=== PATIENT | female | born 1960 | race Caucasian/White ===

== ENCOUNTER 2016-09-16 16:44 | Inpatient (IN) | payer OTHER ==
[2016-09-16 18:16] LABS: CALCIUM 8.6 mg/dl (8.5-10.1); POTASSIUM 3.2 mMol/L (3.5-5.1)
[2016-09-16 18:23] LABS: BASOPHILS % (AUTO) 1 % (0-3); EOSINOPHILS % (AUTO) 1 % (0-9); HEMATOCRIT 41 % (35-47); MEAN CORPUSCULAR HGB CONC 33.8 gm/dl (32.0-36.0); MEAN CORPUSCULAR VOLUME 89 fL (81-99); MONOCYTES % (AUTO) 7.3 % (0-12)
[2016-09-16] MEDS ORDERED: PIPERACILLIN/TAZOBACT 3.375 GM PDS IV ONE (18:27)
[2016-09-16] MEDS ORDERED: SODIUM CHLORIDE 0.9% 100 ML 100 ML IV ONE (18:27)
[2016-09-16] MEDS: SODIUM CHLORIDE 0.9% FLUSH 10 ML SOL IV SCH ×2 (18:39→19:51)
[2016-09-16] MEDS: PIPERACILLIN/TAZOBACT 3.375 GM 3.375 GM in SODIUM CHLORIDE 0.9% 100 ML 100 ML IV SCH (18:40)
[2016-09-16] MEDS ORDERED: VANCOMYCIN HCL 500 MG PDS 1,000 MG in SODIUM CHLORIDE 0.9% 250 ML 250 ML IV ONE (19:00)
[2016-09-16] MEDS: NICOTINE 7 MG PATCH TD SCH (19:50)
[2016-09-16] MEDS: KETOROLAC TROMETHAMINE 30 MG/ML SOL IV PRN (19:50)
[2016-09-16] MEDS ORDERED: VANCOMYCIN HYDROCHLORIDE 500 MG PDS IV ONE (21:00)
[2016-09-16] MEDS ORDERED: SODIUM CHLORIDE 0.9% 250 ML 250 ML IV ONE (21:00)
[2016-09-16] MEDS: BUSPIRONE HCL 5 MG TAB PO SCH (21:18)
[2016-09-16] MEDS: POTASSIUM CHLORIDE 10 MEQ TER PO SCH (21:19)
[2016-09-16] MEDS: PRAZOSIN HYDROCHLORIDE 2 MG CAP PO SCH (21:20)
[2016-09-16] MEDS: ALBUTEROL NEB SOL 2.5MG/3ML 1 VIAL SOL INH PRN (21:25)
[2016-09-16] MEDS: CLONAZEPAM 0.5 MG TAB PO PRN (21:25)
[2016-09-16] MEDS: [UNRECOGNIZED DRUG - OTHER] PO SCH (21:26)
[2016-09-16] MEDS: FORMOTEROL FUMARATE PO SCH (21:26)
[2016-09-17] MEDS ORDERED: PIPERACILLIN/TAZOBACT 3.375 GM PDS IV ONE ×5 (00:19→21:59)
[2016-09-17] MEDS ORDERED: SODIUM CHLORIDE 0.9% 100 ML 100 ML IV ONE ×5 (00:19→21:59)
[2016-09-17] MEDS: POTASSIUM CHLORIDE 10 MEQ TER PO SCH ×2 (00:35→09:24)
[2016-09-17] MEDS: PIPERACILLIN/TAZOBACT 3.375 GM 3.375 GM in SODIUM CHLORIDE 0.9% 100 ML 100 ML IV SCH ×5 (00:36→23:37)
[2016-09-17] MEDS: SODIUM CHLORIDE 0.9% FLUSH 10 ML SOL IV SCH ×6 (00:36→22:33)
[2016-09-17] MEDS: APAP/HYDROCODONE 325/5 TAB PO PRN ×4 (00:42→22:35)
[2016-09-17] MEDS: LEVOTHYROXINE SODIUM 50 MCG TAB PO SCH (06:16)
[2016-09-17] MEDS: KETOROLAC TROMETHAMINE 30 MG/ML SOL IV PRN ×2 (06:16→20:24)
[2016-09-17] MEDS: SERTRALINE HYDROCHLORIDE 50 MG TAB PO SCH (09:23)
[2016-09-17] MEDS: PANTOPRAZOLE SODIUM 40 MG ECT PO SCH (09:23)
[2016-09-17] MEDS: AMLODIPINE 5 MG TAB PO SCH (09:23)
[2016-09-17] MEDS: HYDROCHLOROTHIAZIDE/TRIAMTER 25/37.5 CAPSULE PO SCH (09:23)
[2016-09-17] MEDS: BUSPIRONE HCL 5 MG TAB PO SCH ×2 (09:23→20:23)
[2016-09-17] MEDS: ESTRADIOL 1 MG PO SCH (09:24)
[2016-09-17] MEDS: NICOTINE 7 MG PATCH TD SCH ×2 (10:05→20:54)
[2016-09-17] MEDS ORDERED: VANCOMYCIN HYDROCHLORIDE 500 MG PDS IV ONE ×2 (10:56→21:59)
[2016-09-17] MEDS ORDERED: SODIUM CHLORIDE 0.9% 250 ML 250 ML IV ONE (10:56)
[2016-09-17] MEDS: SODIUM CHLORIDE 0.9% IV SCH ×2 (11:09→22:33)
[2016-09-17] MEDS: VANCOMYCIN HCL IV SCH ×2 (11:09→22:33)
[2016-09-17] MEDS: PDS IV SCH ×2 (11:09→22:33)
[2016-09-17] MEDS: ALBUTEROL NEB SOL 2.5MG/3ML 1 VIAL SOL INH PRN (11:23)
[2016-09-17] MEDS: FORMOTEROL FUMARATE PO SCH ×3 (13:20→20:24)
[2016-09-17] MEDS: [UNRECOGNIZED DRUG - OTHER] PO SCH ×3 (13:20→20:24)
[2016-09-17] MEDS: CLONAZEPAM 0.5 MG TAB PO PRN ×2 (13:36→22:35)
[2016-09-17] MEDS: PRAZOSIN HYDROCHLORIDE 2 MG CAP PO SCH (20:26)
[2016-09-17 23:40] VITALS: O2SAT 96
[2016-09-18] MEDS: SODIUM CHLORIDE 0.9% FLUSH 10 ML SOL IV SCH ×3 (00:04→09:13)
[2016-09-18] MEDS ORDERED: PIPERACILLIN/TAZOBACT 3.375 GM PDS IV ONE (05:31)
[2016-09-18] MEDS ORDERED: SODIUM CHLORIDE 0.9% 100 ML 100 ML IV ONE (05:31)
[2016-09-18] MEDS: PIPERACILLIN/TAZOBACT 3.375 GM 3.375 GM in SODIUM CHLORIDE 0.9% 100 ML 100 ML IV SCH ×2 (06:03→12:09)
[2016-09-18] MEDS: LEVOTHYROXINE SODIUM 50 MCG TAB PO SCH (06:04)
[2016-09-18] MEDS: APAP/HYDROCODONE 325/5 TAB PO PRN ×2 (06:06→12:22)
[2016-09-18] MEDS: POTASSIUM CHLORIDE 10 MEQ TER PO SCH (09:05)
[2016-09-18] MEDS: BUSPIRONE HCL 5 MG TAB PO SCH (09:05)
[2016-09-18] MEDS: AMLODIPINE 5 MG TAB PO SCH (09:05)
[2016-09-18] MEDS: SERTRALINE HYDROCHLORIDE 50 MG TAB PO SCH (09:05)
[2016-09-18] MEDS: HYDROCHLOROTHIAZIDE/TRIAMTER 25/37.5 CAPSULE PO SCH (09:06)
[2016-09-18] MEDS: FORMOTEROL FUMARATE PO SCH (09:07)
[2016-09-18] MEDS: [UNRECOGNIZED DRUG - OTHER] PO SCH (09:07)
[2016-09-18] MEDS: PANTOPRAZOLE SODIUM 40 MG ECT PO SCH (09:07)
[2016-09-18] MEDS: ESTRADIOL 1 MG PO SCH (09:07)
[2016-09-18] MEDS: KETOROLAC TROMETHAMINE 30 MG/ML SOL IV PRN (09:13)
[2016-09-18] MEDS ORDERED: NICOTINE 7 MG PATCH TD SCH (10:00)
[2016-09-18] MEDS: CLONAZEPAM 0.5 MG TAB PO PRN (10:15)
[2016-09-18 11:50] VITALS: BP 136/77; PULSE 93; RESP 18; TEMP 97
[2016-09-18] MEDS ORDERED: VANCOMYCIN HYDROCHLORIDE 500 MG PDS IV ONE (12:03)
[2016-09-18] MEDS ORDERED: SODIUM CHLORIDE 0.9% 250 ML 250 ML IV ONE (12:03)
[2016-09-18] MEDS: VANCOMYCIN HCL IV SCH (12:08)
[2016-09-18] MEDS: PDS IV SCH (12:08)
[2016-09-18] MEDS: SODIUM CHLORIDE 0.9% IV SCH (12:08)
== END 2016-09-18 13:30 | disposition home or self-care (01) | DRG 114 ==
LOC: ACUTE CARE 16:44
PROVIDERS: ADMIT Family Medicine; ATTEND Family Medicine
DX: K13.0 Diseases of lips (principal); F43.10 Post-traumatic stress disorder, unspecified; I10 Essential (primary) hypertension
CPT/HCPCS: 36415; 80048; 84132; 85025; 94640; J1885; J2543; J3370; J7603; A6402

== ENCOUNTER 2016-11-10 14:21 | Outpatient (CLI) | payer OTHER | END 2016-11-10 14:22 | disposition home or self-care (01) | LOC: CONVCARE 14:21 | PROVIDERS: ATTEND Orthopaedic Surgery | DX: M25.561 Pain in right knee (principal) | CPT/HCPCS: 73564 ==

== ENCOUNTER 2017-01-01 14:11 | Emergency (ER) | payer OTHER ==
[2017-01-01 14:32] VITALS: TEMP 96.8
[2017-01-01] MEDS ORDERED: ALBUTEROL/IPRATROPIUM 1 VIAL SOL INH ONE (14:36)
[2017-01-01] MEDS ORDERED: ALBUTEROL/IPRATROPIUM 1 VIAL SOL ONE (14:45)
[2017-01-01 14:53] VITALS: RESP 24
[2017-01-01 14:56] VITALS: PULSE 91; O2SAT 100
[2017-01-01 17:35] VITALS: BP 130/71
== END 2017-01-01 15:32 | disposition home or self-care (01) ==
LOC: ED 14:11
DX: J44.1 Chronic obstructive pulmonary disease with (acute) exacerbation (principal)
CPT/HCPCS: 71020; 99283; J7620

== ENCOUNTER 2017-01-19 14:49 | Outpatient (CLI) | payer OTHER ==
[2017-01-01 14:56] VITALS: O2SAT 100
== END 2017-01-19 14:50 | disposition home or self-care (01) ==
LOC: CONVCARE 14:49
PROVIDERS: ATTEND Orthopaedic Surgery
DX: M84.374D Stress fracture, right foot, subsequent encounter for fracture with routine healing (principal)
CPT/HCPCS: 73630

== ENCOUNTER 2017-05-18 09:20 | Inpatient (IN) | payer OTHER ==
[2017-05-18 09:04] LABS: BASOPHILS % (AUTO) 1 % (0-3); EOSINOPHILS % (AUTO) 0 % (0-9); HEMATOCRIT 38 % (35-47); MEAN CORPUSCULAR HGB CONC 37.7 gm/dl (32.0-36.0); MEAN CORPUSCULAR VOLUME 89 fL (81-99); MONOCYTES % (AUTO) 4.1 % (0-12); NEUTROPHILS % (AUTO) 88.4 % (37-80)
[2017-05-18 09:09] LABS: ANISOCYTOSIS SLIGHT AMT
[2017-05-18 09:13] LABS: ALBUMIN 3.8 gm/dl (3.4-5.0); ALT 49 IU/L (14-63); CALCIUM 8.3 mg/dl (8.5-10.1); GLOM FILT RATE 72 mL/min (>60); POTASSIUM 4.1 mMol/L (3.5-5.1); SODIUM 115 mMol/L (136-145)
[~2017-05-18 09:20] MED LIST: ONDANSETRON HCL 4 MG/2 ML 4 MG in SODIUM CHLORIDE 0.9% 100 ML 100 ML IV ONE; ONDANSETRON HCL 4 MG/2 ML SOL IV ONE; ONDANSETRON HCL 4 MG/2 ML SOL ONE; SODIUM CHLORIDE 0.9% 1000ML 1,000 ML IV ONE; SODIUM CHLORIDE 0.9% 1000ML 1,000 ML IV SCH; SODIUM CHLORIDE 0.9% FLUSH 10 ML SOL IV PRN
[2017-05-18] MEDS ORDERED: CLONAZEPAM 1 MG PO PRN (11:18)
[2017-05-18] MEDS ORDERED: ALBUTEROL HFA 60 PUFF/INHALER INH PRN ×2 (11:18→12:08)
[2017-05-18] MEDS ORDERED: ALBUTEROL NEB SOL 2.5MG/3ML 1 VIAL SOL INH PRN ×2 (11:18→12:08)
[2017-05-18] MEDS ORDERED: APAP/HYDROCODONE 325/5 TAB PO PRN (12:15)
[2017-05-18] MEDS ORDERED: OMEPRAZOLE 20 MG CAPSULE PO SCH (12:30)
[2017-05-18] MEDS: NICOTINE 21 MG PATCH TD SCH (12:39)
[2017-05-18] MEDS: LEVOTHYROXINE SODIUM 50 MCG TAB PO SCH (12:39)
[2017-05-18] MEDS: CHOLECALCIFEROL 1,000 IU TAB PO SCH (12:39)
[2017-05-18] MEDS: POTASSIUM CHLORIDE 10 MEQ TER PO SCH (12:39)
[2017-05-18] MEDS: CLONAZEPAM 0.5 MG TAB PO PRN (12:40)
[2017-05-18] MEDS: HYDROCHLOROTHIAZIDE/TRIAMTER 25/37.5 CAPSULE PO SCH (12:40)
[2017-05-18] MEDS: BUSPIRONE HCL 5 MG TAB PO SCH ×2 (12:41→20:49)
[2017-05-18] MEDS ORDERED: SODIUM CHLORIDE 0.9% 1000 ML SOL IV SCH (13:00)
[2017-05-18] MEDS: APAP/HYDROCODONE 325/5 TAB PO PRN ×3 (13:08→23:00)
[2017-05-18] MEDS: PANTOPRAZOLE SODIUM 40 MG ECT PO SCH (13:09)
[2017-05-18] MEDS: ESTRADIOL 1 MG PO SCH (13:16)
[2017-05-18] MEDS: SODIUM CHLORIDE 0.9% 1000ML 1,000 ML IV SCH (19:30)
[2017-05-18] MEDS: MIRTAZAPINE 15 MG TAB PO SCH (20:50)
[2017-05-18] MEDS: BETAMETHASONE DIPROPIONATE TD SCH (20:51)
[2017-05-18] MEDS: [UNRECOGNIZED DRUG - OTHER] PO SCH (20:52)
[2017-05-18] MEDS: FORMOTEROL FUMARATE PO SCH (20:52)
[2017-05-18] MEDS ORDERED: PRAZOSIN HCL 5 MG PO SCH ×2 (21:00)
[2017-05-18] MEDS ORDERED: BUSPIRONE HCL 7.5 MG PO SCH (21:00)
[2017-05-19] MEDS: APAP/HYDROCODONE 325/5 TAB PO PRN ×4 (05:36→21:08)
[2017-05-19 07:42] LABS: CALCIUM 8.4 mg/dl (8.5-10.1); GLOM FILT RATE 74 mL/min (>60); POTASSIUM 3.9 mMol/L (3.5-5.1); SODIUM 126 mMol/L (136-145); THYROID STIMULATING HORMONE 7.331 uIU/ml (0.358-3.740)
[2017-05-19] MEDS ORDERED: LEVOTHYROXINE SODIUM 50 MCG TAB PO SCH ×2 (09:00)
[2017-05-19] MEDS ORDERED: MULTIVITAMIN PO SCH (09:00)
[2017-05-19] MEDS ORDERED: OMEPRAZOLE 20 MG CAPSULE PO SCH ×2 (09:00)
[2017-05-19] MEDS ORDERED: POTASSIUM CHLORIDE 10 MEQ TER PO SCH ×2 (09:00)
[2017-05-19] MEDS ORDERED: CHOLECALCIFEROL 1,000 IU TAB PO SCH ×2 (09:00)
[2017-05-19] MEDS ORDERED: ESTRADIOL 1 MG PO SCH (09:00)
[2017-05-19] MEDS: LEVOTHYROXINE SODIUM 50 MCG TAB PO SCH (09:05)
[2017-05-19] MEDS: CHOLECALCIFEROL 1,000 IU TAB PO SCH (09:05)
[2017-05-19] MEDS: BUSPIRONE HCL 5 MG TAB PO SCH ×2 (09:06→20:05)
[2017-05-19] MEDS: POTASSIUM CHLORIDE 10 MEQ TER PO SCH (09:06)
[2017-05-19] MEDS: HYDROCHLOROTHIAZIDE/TRIAMTER 25/37.5 CAPSULE PO SCH (09:06)
[2017-05-19] MEDS: [UNRECOGNIZED DRUG - OTHER] PO SCH (09:11)
[2017-05-19] MEDS: BETAMETHASONE DIPROPIONATE TD SCH ×2 (09:11→20:04)
[2017-05-19] MEDS: FORMOTEROL FUMARATE PO SCH (09:11)
[2017-05-19] MEDS: PANTOPRAZOLE SODIUM 40 MG ECT PO SCH (11:53)
[2017-05-19] MEDS: NICOTINE 21 MG PATCH TD SCH (11:53)
[2017-05-19] MEDS: ALBUTEROL/IPRATROPIUM 1 VIAL SOL INH SCH ×4 (12:20→20:13)
[2017-05-19] MEDS: ESTRADIOL 1 MG PO SCH (14:29)
[2017-05-19] MEDS: DULOXETINE HCL 30 MG CAPSULE.DR PO SCH (17:08)
[2017-05-19] MEDS: CLONAZEPAM 0.5 MG TAB PO PRN (17:37)
[2017-05-19] MEDS: MIRTAZAPINE 15 MG TAB PO SCH (20:05)
[2017-05-19] MEDS: FORMOTEROL FUMARATE INH SCH (20:05)
[2017-05-19] MEDS: [UNRECOGNIZED DRUG - OTHER] INH SCH (20:05)
[2017-05-20] MEDS: SODIUM CHLORIDE 0.9% 1000ML 1,000 ML IV SCH (06:09)
[2017-05-20] MEDS: APAP/HYDROCODONE 325/5 TAB PO PRN ×2 (06:55→09:11)
[2017-05-20] MEDS ORDERED: LEVOTHYROXINE SODIUM 50 MCG TAB PO SCH ×2 (07:00)
[2017-05-20 07:24] LABS: CALCIUM 8.7 mg/dl (8.5-10.1); POTASSIUM 3.9 mMol/L (3.5-5.1)
[2017-05-20] MEDS: BUSPIRONE HCL 5 MG TAB PO SCH (08:24)
[2017-05-20] MEDS: HYDROCHLOROTHIAZIDE/TRIAMTER 25/37.5 CAPSULE PO SCH (08:24)
[2017-05-20] MEDS: ESTRADIOL 1 MG PO SCH (08:24)
[2017-05-20] MEDS: PANTOPRAZOLE SODIUM 40 MG ECT PO SCH (08:26)
[2017-05-20] MEDS: CHOLECALCIFEROL 1,000 IU TAB PO SCH (08:26)
[2017-05-20 08:27] VITALS: BP 150/91; TEMP 97.8
[2017-05-20] MEDS: DULOXETINE HCL 30 MG CAPSULE.DR PO SCH (08:27)
[2017-05-20] MEDS: [UNRECOGNIZED DRUG - OTHER] INH SCH (08:28)
[2017-05-20] MEDS: FORMOTEROL FUMARATE INH SCH (08:28)
[2017-05-20] MEDS: ALBUTEROL/IPRATROPIUM 1 VIAL SOL INH SCH ×2 (08:36→12:31)
[2017-05-20] MEDS ORDERED: POTASSIUM CHLORIDE 10 MEQ CAPSULE PO SCH (09:00)
[2017-05-20] MEDS: BETAMETHASONE DIPROPIONATE TD SCH (09:11)
[2017-05-20] MEDS ORDERED: PNEUMOC 13-VAL CONJ-DIP CRM/PF 0.5 ML SYRINGE IM ONE (10:27)
[2017-05-20] MEDS: NICOTINE 21 MG PATCH TD SCH (11:20)
[2017-05-20 12:31] VITALS: PULSE 99; RESP 18; O2SAT 100
== END 2017-05-20 13:05 | disposition home or self-care (01) | DRG 204 ==
LOC: ACUTE CARE 10:40
PROVIDERS: ADMIT Family Medicine; ATTEND Family Medicine
DX: R55 Syncope and collapse (principal); E87.1 Hypo-osmolality and hyponatremia; S22.31XA Fracture of one rib, right side, initial encounter for closed fracture; S00.83XA Contusion of other part of head, initial encounter; E03.9 Hypothyroidism, unspecified; J45.909 Unspecified asthma, uncomplicated; W19.XXXA Unspecified fall, initial encounter
CPT/HCPCS: 36415; 70450; 70486; 71101; 80048; 80053; 80307; 84443; 84484; 85025; 90670; 93005; 93012; 94150; 94640; 94664; 99285; J2405; J7603; J7620; G0008

== ENCOUNTER 2017-06-28 16:52 | Inpatient (IN) | payer OTHER ==
[2017-06-28] MEDS ORDERED: ONDANSETRON 4 MG ODT BU PRN (16:58)
[2017-06-28] MEDS ORDERED: SODIUM CHLORIDE 0.9% 1000ML 1,000 ML IV SCH (17:00)
[2017-06-28 17:19] LABS: HEMATOCRIT 43 % (35-47); MEAN CORPUSCULAR HGB CONC 34.1 gm/dl (32.0-36.0); MEAN CORPUSCULAR VOLUME 96 fL (81-99)
[2017-06-28 17:32] LABS: ALBUMIN 4.6 gm/dl (3.4-5.0); ALT 53 IU/L (14-63); CALCIUM 9.4 mg/dl (8.5-10.1); GLOM FILT RATE 62 mL/min (>60); POTASSIUM 3.5 mMol/L (3.5-5.1); SODIUM 133 mMol/L (136-145)
[2017-06-28 18:50] LABS: BASOPHILS % (MANUAL) 2 % (0-3); EOSINOPHILS % (MANUAL) 0 % (0-9); LYMPHOCYTES % (MANUAL) 12 % (10-50); NORMAL RBCS PRESENT
[2017-06-28] MEDS ORDERED: ALBUTEROL NEB SOL 2.5MG/3ML 1 VIAL SOL INH PRN (20:18)
[2017-06-28] MEDS ORDERED: CLONAZEPAM 0.5 MG TAB PO PRN (20:18)
[2017-06-28] MEDS: DEXTROSE/SALINE 0.45/KCL 20MEQ 1,000 ML/1,000 ML SOL IV SCH (20:43)
[2017-06-28] MEDS: BUSPIRONE HCL 5 MG TAB PO SCH (20:49)
[2017-06-28] MEDS ORDERED: PRAZOSIN HCL 5 MG PO SCH (21:00)
[2017-06-28] MEDS ORDERED: MIRTAZAPINE 15 MG TAB PO SCH (21:00)
[2017-06-28] MEDS: FORMOTEROL FUMARATE PO SCH (22:54)
[2017-06-28] MEDS: [UNRECOGNIZED DRUG - OTHER] PO SCH (22:54)
[2017-06-29 02:05] VITALS: RESP 16
[2017-06-29] MEDS: DEXTROSE/SALINE 0.45/KCL 20MEQ 1,000 ML/1,000 ML SOL IV SCH (03:23)
[2017-06-29] MEDS ORDERED: LEVOTHYROXINE SODIUM 50 MCG TAB PO SCH (07:00)
[2017-06-29 07:39] LABS: APPEARANCE,URINE Clear; BILIRUBIN,URINE NEGATIVE (NEGATIVE); COLOR,URINE Yellow; GLUCOSE, URINE (UA) NEGATIVE (NEGATIVE); KETONES,URINE NEGATIVE (NEGATIVE); LEUKOCYTE ESTERASE ,URINE NEGATIVE (NEGATIVE); NITRATE,URINE NEGATIVE (NEGATIVE); OCCULT BLOOD,URINE NEGATIVE (NEG-TRACE); PH,URINE 8.5; UROBILINOGEN,URINE 0.2 (0.2-1.0 EU)
[2017-06-29 07:50] LABS: AMPHETAMINES NEGATIVE (NEGATIVE); METHADONE NEGATIVE (NEGATIVE); OPIATES(OP13) NEGATIVE (NEGATIVE); OXYCODONE(OXY) NEGATIVE (NEGATIVE); PROPOXYPHENE(PPX) NEGATIVE (NEGATIVE); RBC,URINE NEGATIVE (0-3AV/HPF); TRICYCLIC ANTIDEPRESSANTS NEGATIVE (NEGATIVE); WBC,URINE NEGATIVE (0-5AV/HPF)
[2017-06-29 08:02] VITALS: BP 152/87; PULSE 99; TEMP 98.4; O2SAT 98
[2017-06-29] MEDS ORDERED: ESTRADIOL 1 MG PO SCH (09:00)
[2017-06-29] MEDS ORDERED: DULOXETINE HCL 30 MG CAPSULE.DR PO SCH (09:00)
[2017-06-29] MEDS ORDERED: OMEPRAZOLE 20 MG CAPSULE PO SCH (09:00)
[2017-06-29] MEDS ORDERED: POTASSIUM CHLORIDE 10 MEQ TER PO SCH (09:00)
[2017-06-29] MEDS ORDERED: PANTOPRAZOLE SODIUM 40 MG ECT PO SCH (09:00)
[2017-06-29] MEDS: BUSPIRONE HCL 5 MG TAB PO SCH (09:31)
[2017-06-29] MEDS: [UNRECOGNIZED DRUG - OTHER] PO SCH (09:35)
[2017-06-29] MEDS: FORMOTEROL FUMARATE PO SCH (09:35)
== END 2017-06-29 13:00 | disposition home or self-care (01) | DRG 422 ==
LOC: ACUTE CARE 17:04
PROVIDERS: ADMIT Family Medicine; ATTEND Family Medicine
DX: E86.0 Dehydration (principal); J44.9 Chronic obstructive pulmonary disease, unspecified; R53.83 Other fatigue; R21 Rash and other nonspecific skin eruption; B34.9 Viral infection, unspecified
CPT/HCPCS: 36415; 71045; 80053; 80305; 81001; 82150; 84484; 85007; 85027; 93005; A9270-GY

== ENCOUNTER 2017-10-03 18:49 | Emergency (ER) | payer OTHER ==
[2017-10-03] MEDS ORDERED: ALBUTEROL/IPRATROPIUM 1 VIAL SOL INH PRN (18:59)
[2017-10-03] MEDS ORDERED: SOLUMEDROL 125 MG/2 ML 125 MG/2 ML PDS IV ONE (18:59)
[2017-10-03] MEDS ORDERED: LORAZEPAM 2 MG/ML 10ML MDV 2 MG/ML VIAL IV ONE (19:00)
[2017-10-03] MEDS ORDERED: SOLUMEDROL 125 MG/2 ML 125 MG/2 ML PDS ONE (19:03)
[2017-10-03] MEDS ORDERED: LORAZEPAM 2 MG/ML SOL ONE ×3 (19:04→22:20)
[2017-10-03] MEDS ORDERED: ALBUTEROL/IPRATROPIUM 1 VIAL SOL ONE (19:04)
[2017-10-03] MEDS ORDERED: SODIUM CHLORIDE 0.9% FLUSH 10 ML SOL IV PRN (19:15)
[2017-10-03 19:33] LABS: BASOPHILS % (AUTO) 0 % (0-3); EOSINOPHILS % (AUTO) 0 % (0-9); HEMATOCRIT 33 % (35-47); MEAN CORPUSCULAR HGB CONC 33.2 gm/dl (32.0-36.0); MEAN CORPUSCULAR VOLUME 98 fL (81-99); NEUTROPHILS % (AUTO) 80.6 % (37-80)
[2017-10-03 19:49] LABS: ALBUMIN 4.1 gm/dl (3.4-5.0); ALKALINE PHOSPHATASE 58 IU/L (46-116); ALT 51 IU/L (14-63); AST 83 IU/L (15-37); BILIRUBIN,TOTAL 0.9 mg/dl (0.2-1.0); BLOOD UREA NITROGEN 13 mg/dl (7-18); CALCIUM 8.1 mg/dl (8.5-10.1); CREATININE 1.22 mg/dl (0.60-1.00); GLOM FILT RATE 46 mL/min (>60); GLUCOSE 212 mg/dl (74-106); POTASSIUM 3.6 mMol/L (3.5-5.1); SODIUM 125 mMol/L (136-145)
[2017-10-03 19:50] LABS: ALCOHOL 0.138 gm/dl (0.000-0.08)
[2017-10-03 20:05] LABS: ABG PH 7.36 (7.35-7.45)
[2017-10-03] MEDS ORDERED: SODIUM CHLORIDE 0.9% 500 ML 500 ML IV ONE (20:30)
[2017-10-03] MEDS ORDERED: FUROSEMIDE 20mg SOL IV ONE ×2 (20:37→20:42)
[2017-10-03] MEDS ORDERED: FUROSEMIDE 20mg SOL ONE (20:41)
[2017-10-03] MEDS ORDERED: LORAZEPAM 2 MG/ML SOL IV ONE (20:42)
[2017-10-03 22:11] LABS: APPEARANCE,URINE Clear; BILIRUBIN,URINE NEGATIVE (NEGATIVE); COLOR,URINE Yellow; GLUCOSE, URINE (UA) NEGATIVE (NEGATIVE); KETONES,URINE NEGATIVE (NEGATIVE); LEUKOCYTE ESTERASE ,URINE NEGATIVE (NEGATIVE); NITRATE,URINE NEGATIVE (NEGATIVE); OCCULT BLOOD,URINE NEGATIVE (NEG-TRACE); PH,URINE 5.5; UROBILINOGEN,URINE 0.2 (0.2-1.0 EU)
[2017-10-03 22:23] LABS: METHADONE NEGATIVE (NEGATIVE); OPIATES(OP13) NEGATIVE (NEGATIVE); RBC,URINE NEG (0-3AV/HPF); TRICYCLIC ANTIDEPRESSANTS NEGATIVE (NEGATIVE); WBC,URINE NEG (0-5AV/HPF)
[2017-10-03 22:24] LABS: AMPHETAMINES POSITIVE (NEGATIVE); OXYCODONE(OXY) POSITIVE (NEGATIVE); PROPOXYPHENE(PPX) NEGATIVE (NEGATIVE)
[2017-10-03] MEDS ORDERED: LORAZEPAM 2 MG/ML SOL IV PRN (22:32)
[2017-10-04 00:26] VITALS: TEMP 99; O2SAT 94
[2017-10-04 00:27] VITALS: BP 132/67; PULSE 132; RESP 29
== END 2017-10-03 22:33 | disposition short-term general hospital (02) ==
LOC: ED 18:49
DX: J45.41 Moderate persistent asthma with (acute) exacerbation (principal); R00.0 Tachycardia, unspecified; J44.9 Chronic obstructive pulmonary disease, unspecified
CPT/HCPCS: 36415; 36600; 71045; 80053; 80305; 80307; 81001; 82803; 83880; 84484; 85025; 99285; J1940; J2060; J2930

== ENCOUNTER 2017-10-24 16:50 | Emergency (ER) | payer OTHER ==
[2017-10-24 17:09] VITALS: O2SAT 94
== END 2017-10-24 17:15 | disposition left against medical advice (07) ==
LOC: ED 16:50
DX: Z53.21 Procedure and treatment not carried out due to patient leaving prior to being seen by health care provider (principal)

== ENCOUNTER 2017-10-25 11:50 | Emergency (ER) | payer OTHER ==
[2017-10-25] MEDS ORDERED: SODIUM CHLORIDE 0.9% 1000ML 1,000 ML IV ONE (12:11)
[2017-10-25 12:16] LABS: BASOPHILS % (AUTO) 1 % (0-3); EOSINOPHILS % (AUTO) 0 % (0-9); HEMATOCRIT 33 % (35-47); HEMOGLOBIN 11.2 gm/dl (12.0-15.5); LYMPHOCYTES % (AUTO) 7.91 % (10-50); MEAN CORPUSCULAR HEMOGLOBIN 31.9 pg (27.0-32.0); MEAN CORPUSCULAR HGB CONC 33.8 gm/dl (32.0-36.0); MEAN CORPUSCULAR VOLUME 94 fL (81-99); MONOCYTES % (AUTO) 5.8 % (0-12); NEUTROPHILS % (AUTO) 84.8 % (37-80)
[2017-10-25 12:35] LABS: ALBUMIN 3.4 gm/dl (3.4-5.0); ALKALINE PHOSPHATASE 72 IU/L (46-116); ALT 38 IU/L (14-63); AST 50 IU/L (15-37); BILIRUBIN,TOTAL 1.3 mg/dl (0.2-1.0); BLOOD UREA NITROGEN 20 mg/dl (7-18); CALCIUM 8.2 mg/dl (8.5-10.1); CARBON DIOXIDE 27.5 mEq/L (21-32); CHLORIDE 100 mMol/L (98-107); CREATININE 1.01 mg/dl (0.60-1.00); GLOM FILT RATE 57 mL/min (>60); GLUCOSE 106 mg/dl (74-106); POTASSIUM 3.6 mMol/L (3.5-5.1); SALICYLATE 3.8 mg/dl (2.8-30.0); SODIUM 138 mMol/L (136-145); THYROID STIMULATING HORMONE 2.069 uIU/ml (0.358-3.740); TOTAL PROTEIN 6.3 gm/dl (6.4-8.2)
[2017-10-25 12:38] LABS: ALCOHOL < 0.003 gm/dl (0.000-0.08)
[2017-10-25 12:39] LABS: ACETAMINOPHEN < 2 ug/ml (10-30)
[2017-10-25 12:44] LABS: APPEARANCE,URINE Clear; BILIRUBIN,URINE NEGATIVE (NEGATIVE); COLOR,URINE Dark yellow; GLUCOSE, URINE (UA) NEGATIVE (NEGATIVE); KETONES,URINE 1+ (NEGATIVE); LEUKOCYTE ESTERASE ,URINE NEGATIVE (NEGATIVE); NITRATE,URINE NEGATIVE (NEGATIVE); OCCULT BLOOD,URINE NEGATIVE (NEG-TRACE)
[2017-10-25 12:48] LABS: RBC,URINE 0-2 (0-3AV/HPF)
[2017-10-25 12:49] LABS: BACTERIA 1+ (< 1+); CRYSTALS 2+ AMORPH URATES (0-3 AVE/HPF)
[2017-10-25 12:50] LABS: AMPHETAMINES POSITIVE (NEGATIVE); BARBITUATES NEGATIVE (NEGATIVE); BENZODIAZEPINES POSITIVE (NEGATIVE); CANNABINOL(THC) POSITIVE (NEGATIVE); COCAINE(COC) NEGATIVE (NEGATIVE); METHADONE NEGATIVE (NEGATIVE); METHAMPHETAMINES POSITIVE (NEGATIVE); OPIATES(OP13) NEGATIVE (NEGATIVE); PROPOXYPHENE(PPX) NEGATIVE (NEGATIVE); TRICYCLIC ANTIDEPRESSANTS NEGATIVE (NEGATIVE)
[2017-10-25 12:51] LABS: OXYCODONE(OXY) POSITIVE (NEGATIVE)
[2017-10-25] MEDS ORDERED: DEXTROSE/SALINE 0.45/KCL 20MEQ 1,000 ML/1,000 ML SOL IV ONE ×2 (16:32)
[2017-10-25] MEDS ORDERED: SODIUM CHLORIDE 0.9% 1000 ML SOL IV SCH (17:00)
[2017-10-26 05:19] VITALS: RESP 20
[2017-10-26 05:54] VITALS: BP 154/82; PULSE 94; TEMP 98; O2SAT 96
== END 2017-10-26 06:12 | disposition short-term general hospital (02) ==
LOC: ED 11:50
DX: F12.10 Cannabis abuse, uncomplicated (principal); F29 Unspecified psychosis not due to a substance or known physiological condition; R47.89 Other speech disturbances; F15.90 Other stimulant use, unspecified, uncomplicated; R00.0 Tachycardia, unspecified
CPT/HCPCS: 36415; 71045; 80053; 80305; 80307; 81001; 83880; 84443; 84484; 84703; 85025; 93005; 96365; 96366; 99285; 99291; 99292

== ENCOUNTER 2018-12-29 00:54 | Emergency (ER) | payer OTHER ==
[2018-12-29] MEDS ORDERED: HALOPERIDOL LACTATE 5 MG/ML SOL IM ONE (00:58)
[2018-12-29] MEDS ORDERED: HALOPERIDOL LACTATE 5 MG/ML SOL ONE (00:59)
[2018-12-29] MEDS ORDERED: HALOPERIDOL LACTATE 5 MG/ML SOL IM PRN (01:46)
[2018-12-29 01:47] VITALS: TEMP 97.4
[2018-12-29] MEDS ORDERED: DIPHENHYDRAMINE 25 MG CAP PO PRN (01:47)
[2018-12-29] MEDS ORDERED: LORAZEPAM 2 MG/ML SOL IV PRN (01:47)
[2018-12-29 01:49] LABS: BASOPHILS % (AUTO) 1 % (0-3); EOSINOPHILS % (AUTO) 1 % (0-9); HEMATOCRIT 42 % (35-47); HEMOGLOBIN 14.5 gm/dl (12.0-15.5); LYMPHOCYTES % (AUTO) 30.3 % (10-50); MEAN CORPUSCULAR HEMOGLOBIN 31.6 pg (27.0-32.0); MEAN CORPUSCULAR HGB CONC 34.6 gm/dl (32.0-36.0); MEAN CORPUSCULAR VOLUME 91 fL (81-99); MONOCYTES % (AUTO) 7.2 % (0-12); NEUTROPHILS % (AUTO) 60.4 % (37-80)
[2018-12-29 02:12] LABS: ALKALINE PHOSPHATASE 77 IU/L (46-116); ALT 32 IU/L (14-63); AST 24 IU/L (15-37); BILIRUBIN,TOTAL 0.8 mg/dl (0.2-1.0); BLOOD UREA NITROGEN 17 mg/dl (7-18); CALCIUM 8.8 mg/dl (8.5-10.1); CARBON DIOXIDE 24.4 mEq/L (21-32); CHLORIDE 97 mMol/L (98-107); CREATININE 0.83 mg/dl (0.60-1.00); GLUCOSE 111 mg/dl (74-106); POTASSIUM 3.2 mMol/L (3.5-5.1); SODIUM 132 mMol/L (136-145); THYROID STIMULATING HORMONE 8.742 uIU/ml (0.358-3.740); TOTAL PROTEIN 7.2 gm/dl (6.4-8.2)
[2018-12-29 02:13] LABS: APPEARANCE,URINE Clear; BILIRUBIN,URINE NEGATIVE (NEGATIVE); COLOR,URINE Yellow; GLUCOSE, URINE (UA) NEGATIVE (NEGATIVE); KETONES,URINE NEGATIVE (NEGATIVE); LEUKOCYTE ESTERASE ,URINE 1+ (NEGATIVE); NITRATE,URINE POSITIVE (NEGATIVE); OCCULT BLOOD,URINE NEGATIVE (NEG-TRACE); PH,URINE 6.5; UROBILINOGEN,URINE 0.2 (0.2-1.0 EU)
[2018-12-29 02:16] LABS: ALCOHOL < 0.003 gm/dl (0.000-0.08)
[2018-12-29 02:22] LABS: AMPHETAMINES POSITIVE (NEGATIVE); BACTERIA 2+ (< 1+); BARBITUATES NEGATIVE (NEGATIVE); BENZODIAZEPINES NEGATIVE (NEGATIVE); CANNABINOL(THC) POSITIVE (NEGATIVE); COCAINE(COC) NEGATIVE (NEGATIVE); CRYSTALS NEGATIVE (0-3 AVE/HPF); EPITHELIAL CELLS 0-3 (SQUAMOUS); OPIATES(OPI) NEGATIVE (NEGATIVE); PROPOXYPHENE(PPX) NEGATIVE (NEGATIVE); RBC,URINE NEG (0-3AV/HPF)
[2018-12-29 02:23] LABS: METHAMPHETAMINES POSITIVE (NEGATIVE); OXYCODONE(OXY) NEGATIVE (NEGATIVE)
[2018-12-29] MEDS ORDERED: POTASSIUM CHLORIDE 10 MEQ TER PO ONE (07:21)
[2018-12-29] MEDS ORDERED: POTASSIUM CHLORIDE 10 MEQ TER ONE (07:59)
[2018-12-29 08:10] VITALS: BP 137/90; PULSE 91; RESP 20; O2SAT 97
== END 2018-12-29 08:33 | disposition short-term general hospital (02) | DRG 885 ==
LOC: ED 00:54
DX: F29 Unspecified psychosis not due to a substance or known physiological condition (principal); F41.9 Anxiety disorder, unspecified
CPT/HCPCS: 36415; 80053; 80305; 80307; 81001; 84443; 85025; 87077; 87088; 87186; 96372; 99283; 99285; J1630; A9270-GY